=== PATIENT | female | born 1960 | race African-American/Black ===

== ENCOUNTER 2021-12-05 17:22 | Inpatient (IN) ==
[2021-12-05 18:06] LABS: Basophils % 0.1 % (0.0-0.8); Hematocrit 34.7 VOL% (35.7-47.0); Hemoglobin 11.6 GM/DL (12.0-16.0); Immature Granulocytes % 1.1 %; Immature Granulocytes Absolute 0.09 #; Lymphocytes # 0.4 10*3/uL (1.4-4.0); Mean Corpuscular HGB Conc 33.4 GM/DL (32-36); Mean Corpuscular Volume 94.3 FL (87-102); Mean Platelet Volume 8.6 FL (9.6-12.0); Monocytes % 1.5 % (1.7-12.7); Neutrophils % 92.3 % (38.7-73.9); Platelet Count 507 T/CUMM (130-400); Red Blood Count 3.68 MC/CUMM (3.8-5.5); White Blood Count 8.1 T/CUMM (4-12)
[2021-12-05] MEDS ORDERED: LEVOFLOXACIN INJ 750 MG/150 ML PREMIX IV STA (18:17)
[2021-12-05] MEDS ORDERED: methylPREDNISolone SOD SUC 125 MG/2 ML VIAL IV STA (18:17)
[2021-12-05] MEDS ORDERED: ONDANSETRON 4 MG/2 ML VIAL IV STA (18:17)
[2021-12-05] MEDS ORDERED: ALBUTEROL/IPRATROPIUM 3 ML NEB RESP TX STA (18:17)
[2021-12-05 18:34] LABS: PT Patient Result 11.5 SECS (10.5-12.0)
[2021-12-05 18:37] LABS: Albumin 3.1 G/DL (3.4-5.0); Bilirubin,Total 0.4 MG/DL (0.20-1.00); Calcium 9.5 MG/DL (8.5-10.1); Osmolality,Calculated 240.3 MOS/KG (273-304); Potassium 4.9 MMOL/L (3.5-5.1)
[2021-12-05 18:45] LABS: Lymphocytes 7 % (20-55); Segmented Neutrophils 93 % (50-85); Total Cells Counted 100
[2021-12-05 18:46] LABS: Platelet Estimate Increased
[2021-12-06] MEDS ORDERED: diphenhydrAMINE CAP 25 MG CAPSULE PO PRN (01:04)
[2021-12-06] MEDS ORDERED: DEXTROSE 10% 250 ML BAG IV PRN (01:04)
[2021-12-06] MEDS ORDERED: MORPHINE 2 MG/1 ML SYRINGE IV PRN (01:04)
[2021-12-06] MEDS ORDERED: GLUCAGON 1 MG VIAL IM PRN (01:04)
[2021-12-06] MEDS ORDERED: hydrALAZINE 20 MG/1 ML VIAL IV PRN (01:04)
[2021-12-06] MEDS ORDERED: NICOTINE 21 MG/24 HR PATCH TRANSDERM PRN (01:04)
[2021-12-06] MEDS: SODIUM CHLORIDE 0.9% 1,000 ML IV SCH ×3 (01:54→18:00)
[2021-12-06 04:57] LABS: Basophils % 0.2 % (0.0-0.8); Hematocrit 31.3 VOL% (35.7-47.0); Hemoglobin 10.5 GM/DL (12.0-16.0); Immature Granulocytes % 0.8 %; Immature Granulocytes Absolute 0.05 #; Lymphocytes # 0.4 10*3/uL (1.4-4.0); Lymphocytes % 6.6 % (21.3-54.2); Mean Corpuscular HGB Conc 33.5 GM/DL (32-36); Mean Corpuscular Volume 94.6 FL (87-102); Mean Platelet Volume 8.7 FL (9.6-12.0); Monocytes % 2.2 % (1.7-12.7); Neutrophils % 90.2 % (38.7-73.9); Platelet Count 519 T/CUMM (130-400); Red Blood Count 3.31 MC/CUMM (3.8-5.5); Red Cell Distribution Width 14.8 % (9.3-17.3); White Blood Count 6.4 T/CUMM (4-12)
[2021-12-06 05:15] LABS: Calcium 9.2 MG/DL (8.5-10.1); Osmolality,Calculated 241.2 MOS/KG (273-304); Potassium 4.8 MMOL/L (3.5-5.1)
[2021-12-06] MEDS: ALBUTEROL/IPRATROPIUM 3 ML NEB RESP TX SCH ×2 (07:20→19:32)
[2021-12-06] MEDS: HEPARIN 5,000 UNIT/1 ML VIAL SUBCUT SCH ×2 (09:45→21:27)
[2021-12-06] MEDS: methylPREDNISolone SOD SUC 40 MG/1 ML VIAL IV SCH ×2 (09:46→21:27)
[2021-12-06 11:10] LABS: % Iron Saturation 20.5 % (18-50)
[2021-12-06 11:23] LABS: Folate 5.87 NG/ML (5.38-24.0)
[2021-12-06 15:44] LABS: Calcium 8.9 MG/DL (8.5-10.1); Osmolality,Calculated 247.9 MOS/KG (273-304); Potassium 4.6 MMOL/L (3.5-5.1)
[2021-12-06] MEDS: ONDANSETRON 4 MG/2 ML VIAL IV PRN (16:55)
[2021-12-06] MEDS: LEVOFLOXACIN INJ 750 MG/150 ML PREMIX IV SCH (18:54)
[2021-12-06] MEDS: ZALEPLON 5 MG CAPSULE PO PRN (21:25)
[2021-12-06] MEDS: PARoxetine 20 MG TABLET PO SCH (21:25)
[2021-12-06] MEDS: metFORMIN 500 MG TABLET PO SCH (21:25)
[2021-12-06] MEDS: ATORVASTATIN 40 MG TABLET PO SCH (21:26)
[2021-12-06] MEDS: prednisoLONE ACETATE 1% OPH SUSP 5 ML BOTTLE RIGHT EYE SCH (21:26)
[2021-12-06] MEDS: FLUTICASONE/SALMETEROL 500-50 DISKUS 14 DOSE INH SCH (21:33)
[2021-12-06] MEDS: levETIRAcetam 250 MG TABLET PO SCH (21:36)
[2021-12-06] MEDS ORDERED: LORazepam 2 MG/1 ML VIAL ONE (23:58)
[2021-12-07] MEDS ORDERED: LORazepam 2 MG/1 ML VIAL IV ONE (00:01)
[2021-12-07] MEDS: ALBUTEROL/IPRATROPIUM 3 ML NEB RESP TX SCH ×5 (00:30→19:26)
[2021-12-07] MEDS: SODIUM CHLORIDE 0.9% 1,000 ML IV SCH ×3 (00:34→22:17)
[2021-12-07 06:14] LABS: Calcium 8.6 MG/DL (8.5-10.1); Osmolality,Calculated 248.5 MOS/KG (273-304); Potassium 3.9 MMOL/L (3.5-5.1)
[2021-12-07 07:01] LABS: Calcium 8.4 MG/DL (8.5-10.1); Osmolality,Calculated 246.6 MOS/KG (273-304); Potassium 3.9 MMOL/L (3.5-5.1); Risk Ratio 2.94; VLDL Cholesterol 15.4 MG/DL
[2021-12-07] MEDS: metFORMIN 500 MG TABLET PO SCH ×2 (09:17→22:08)
[2021-12-07] MEDS: HEPARIN 5,000 UNIT/1 ML VIAL SUBCUT SCH ×2 (09:17→22:08)
[2021-12-07] MEDS: levETIRAcetam 250 MG TABLET PO SCH (09:17)
[2021-12-07] MEDS: methylPREDNISolone SOD SUC 40 MG/1 ML VIAL IV SCH ×2 (09:21→22:08)
[2021-12-07] MEDS: FLUTICASONE/SALMETEROL 500-50 DISKUS 14 DOSE INH SCH ×2 (09:21→22:08)
[2021-12-07] MEDS: ONDANSETRON 4 MG/2 ML VIAL IV PRN ×2 (11:17→22:06)
[2021-12-07] MEDS ORDERED: LORazepam 2 MG/1 ML VIAL IV PRN (16:14)
[2021-12-07] MEDS: LEVOFLOXACIN INJ 750 MG/150 ML PREMIX IV SCH (18:36)
[2021-12-07] MEDS: prednisoLONE ACETATE 1% OPH SUSP 5 ML BOTTLE RIGHT EYE SCH (22:07)
[2021-12-07] MEDS: ATORVASTATIN 40 MG TABLET PO SCH (22:07)
[2021-12-07] MEDS: levETIRAcetam 500 MG TABLET PO SCH (22:08)
[2021-12-07] MEDS: PARoxetine 20 MG TABLET PO SCH (22:08)
[2021-12-07] MEDS: guaiFENesin/DM ER 600-30 MG TABLET PO PRN (23:02)
[2021-12-08 05:33] LABS: Basophils % 0.1 % (0.0-0.8); Hematocrit 29.9 VOL% (35.7-47.0); Hemoglobin 9.6 GM/DL (12.0-16.0); Immature Granulocytes % 1.3 %; Immature Granulocytes Absolute 0.14 #; Lymphocytes # 0.2 10*3/uL (1.4-4.0); Mean Corpuscular HGB Conc 32.1 GM/DL (32-36); Mean Corpuscular Volume 98.4 FL (87-102); Mean Platelet Volume 8.8 FL (9.6-12.0); Monocytes % 3.8 % (1.7-12.7); Neutrophils % 92.8 % (38.7-73.9); Platelet Count 453 T/CUMM (130-400); Red Blood Count 3.04 MC/CUMM (3.8-5.5); Red Cell Distribution Width 14.6 % (9.3-17.3); White Blood Count 10.9 T/CUMM (4-12)
[2021-12-08 05:51] LABS: Calcium 8.2 MG/DL (8.5-10.1); Osmolality,Calculated 250.5 MOS/KG (273-304); Potassium 4.3 MMOL/L (3.5-5.1)
[2021-12-08 05:59] LABS: Hypochromia 1+; Lymphocytes 3 % (20-55); Microcytosis 1+; Platelet Estimate Adequate; Segmented Neutrophils 96 % (50-85); Total Cells Counted 100
[2021-12-08] MEDS: SODIUM CHLORIDE 0.9% 1,000 ML IV SCH ×3 (06:15→22:59)
[2021-12-08] MEDS: ALBUTEROL/IPRATROPIUM 3 ML NEB RESP TX SCH ×4 (07:32→19:21)
[2021-12-08] MEDS: FLUTICASONE/SALMETEROL 500-50 DISKUS 14 DOSE INH SCH ×2 (09:22→20:51)
[2021-12-08] MEDS: guaiFENesin/DM ER 600-30 MG TABLET PO PRN ×2 (09:23→20:52)
[2021-12-08] MEDS: HEPARIN 5,000 UNIT/1 ML VIAL SUBCUT SCH ×2 (09:23→20:53)
[2021-12-08] MEDS: levETIRAcetam 500 MG TABLET PO SCH ×2 (09:23→20:52)
[2021-12-08] MEDS: metFORMIN 500 MG TABLET PO SCH ×2 (09:23→20:53)
[2021-12-08] MEDS: methylPREDNISolone SOD SUC 40 MG/1 ML VIAL IV SCH ×2 (09:25→20:52)
[2021-12-08 14:46] LABS: % Iron Saturation 13.6 % (18-50)
[2021-12-08 14:52] LABS: Folate 3.62 NG/ML (5.38-24.0)
[2021-12-08] MEDS: LEVOFLOXACIN INJ 750 MG/150 ML PREMIX IV SCH (18:47)
[2021-12-08] MEDS: prednisoLONE ACETATE 1% OPH SUSP 5 ML BOTTLE RIGHT EYE SCH (20:51)
[2021-12-08] MEDS: PARoxetine 20 MG TABLET PO SCH (20:52)
[2021-12-08] MEDS: ATORVASTATIN 40 MG TABLET PO SCH (20:53)
[2021-12-09] MEDS: ALBUTEROL/IPRATROPIUM 3 ML NEB RESP TX SCH ×4 (00:03→19:30)
[2021-12-09 05:05] LABS: Basophils % 0.1 % (0.0-0.8); Hematocrit 31.5 VOL% (35.7-47.0); Hemoglobin 9.7 GM/DL (12.0-16.0); Immature Granulocytes % 1.3 %; Immature Granulocytes Absolute 0.13 #; Lymphocytes # 0.3 10*3/uL (1.4-4.0); Lymphocytes % 3.3 % (21.3-54.2); Mean Corpuscular HGB Conc 30.8 GM/DL (32-36); Mean Corpuscular Volume 98.7 FL (87-102); Mean Platelet Volume 8.5 FL (9.6-12.0); Monocytes % 5.3 % (1.7-12.7); Platelet Count 413 T/CUMM (130-400); Red Blood Count 3.19 MC/CUMM (3.8-5.5); Red Cell Distribution Width 14.5 % (9.3-17.3); White Blood Count 10.3 T/CUMM (4-12)
[2021-12-09 05:20] LABS: Calcium 8.6 MG/DL (8.5-10.1); Osmolality,Calculated 259.9 MOS/KG (273-304); Potassium 4.2 MMOL/L (3.5-5.1)
[2021-12-09 05:29] LABS: Hypochromia 1+; Lymphocytes 1 % (20-55); Microcytosis 1+; Platelet Estimate Adequate; Segmented Neutrophils 96 % (50-85); Total Cells Counted 100
[2021-12-09] MEDS: SODIUM CHLORIDE 0.9% 1,000 ML IV SCH ×3 (06:42→22:09)
[2021-12-09] MEDS: levETIRAcetam 500 MG TABLET PO SCH (08:29)
[2021-12-09] MEDS: metFORMIN 500 MG TABLET PO SCH ×2 (08:29→21:17)
[2021-12-09] MEDS: methylPREDNISolone SOD SUC 40 MG/1 ML VIAL IV SCH ×2 (08:29→21:20)
[2021-12-09] MEDS: HEPARIN 5,000 UNIT/1 ML VIAL SUBCUT SCH ×2 (08:30→21:18)
[2021-12-09] MEDS: FLUTICASONE/SALMETEROL 500-50 DISKUS 14 DOSE INH SCH ×2 (08:30→22:09)
[2021-12-09] MEDS ORDERED: GRANISETRON 1 MG/1 ML VIAL IV SCH (10:00)
[2021-12-09] MEDS ORDERED: CARBOplatin 550 MG in SODIUM CHLORIDE 0.9% 250 ML IV ONE (10:30)
[2021-12-09] MEDS: ETOPOSIDE 150 MG in SODIUM CHLORIDE 0.9% 500 ML IV SCH (12:39)
[2021-12-09] MEDS: LEVOFLOXACIN INJ 750 MG/150 ML PREMIX IV SCH (17:43)
[2021-12-09] MEDS: PARoxetine 20 MG TABLET PO SCH (21:17)
[2021-12-09] MEDS: ATORVASTATIN 40 MG TABLET PO SCH (21:17)
[2021-12-09] MEDS: prednisoLONE ACETATE 1% OPH SUSP 5 ML BOTTLE RIGHT EYE SCH (22:09)
[2021-12-09] MEDS: levETIRAcetam LIQUID 100 MG/ML 30 ML/BOTTLE PO SCH (22:10)
[2021-12-10] MEDS: ALBUTEROL/IPRATROPIUM 3 ML NEB RESP TX SCH ×4 (00:45→19:35)
[2021-12-10] MEDS: SODIUM CHLORIDE 0.9% 1,000 ML IV SCH ×3 (04:35→16:37)
[2021-12-10 04:50] LABS: Basophils % 0.1 % (0.0-0.8); Hematocrit 31.1 VOL% (35.7-47.0); Hemoglobin 10.1 GM/DL (12.0-16.0); Immature Granulocytes % 0.7 %; Immature Granulocytes Absolute 0.08 #; Lymphocytes # 0.4 10*3/uL (1.4-4.0); Lymphocytes % 2.9 % (21.3-54.2); Mean Corpuscular HGB Conc 32.5 GM/DL (32-36); Mean Corpuscular Volume 98.1 FL (87-102); Mean Platelet Volume 8.6 FL (9.6-12.0); Monocytes % 4.4 % (1.7-12.7); Neutrophils % 91.9 % (38.7-73.9); Platelet Count 446 T/CUMM (130-400); Red Blood Count 3.17 MC/CUMM (3.8-5.5); Red Cell Distribution Width 14.8 % (9.3-17.3)
[2021-12-10 05:12] LABS: Calcium 8.6 MG/DL (8.5-10.1); Osmolality,Calculated 257.9 MOS/KG (273-304); Potassium 3.9 MMOL/L (3.5-5.1)
[2021-12-10 05:41] LABS: Hypochromia 1+; Lymphocytes 3 % (20-55); Microcytosis 1+; Platelet Estimate Adequate; Segmented Neutrophils 95 % (50-85); Total Cells Counted 100
[2021-12-10] MEDS: metFORMIN 500 MG TABLET PO SCH ×2 (09:09→21:00)
[2021-12-10] MEDS: methylPREDNISolone SOD SUC 40 MG/1 ML VIAL IV SCH ×2 (09:09→21:35)
[2021-12-10] MEDS: HEPARIN 5,000 UNIT/1 ML VIAL SUBCUT SCH ×2 (09:09→21:16)
[2021-12-10] MEDS: FLUTICASONE/SALMETEROL 500-50 DISKUS 14 DOSE INH SCH ×2 (09:10→21:21)
[2021-12-10] MEDS: levETIRAcetam LIQUID 100 MG/ML 30 ML/BOTTLE PO SCH ×2 (09:10→21:04)
[2021-12-10] MEDS: ETOPOSIDE 150 MG in SODIUM CHLORIDE 0.9% 500 ML IV SCH (12:51)
[2021-12-10] MEDS: ACETAMINOPHEN 325 MG TABLET PO PRN (14:26)
[2021-12-10] MEDS: ONDANSETRON 4 MG/2 ML VIAL IV PRN ×2 (15:22→21:37)
[2021-12-10] MEDS: NYSTATIN 500,000 UNIT/5 ML UDCUP SWISH/SWAL SCH ×2 (16:36→21:16)
[2021-12-10] MEDS: LEVOFLOXACIN INJ 750 MG/150 ML PREMIX IV SCH (18:12)
[2021-12-10] MEDS: ATORVASTATIN 40 MG TABLET PO SCH (21:00)
[2021-12-10] MEDS: PARoxetine 20 MG TABLET PO SCH (21:00)
[2021-12-10] MEDS: prednisoLONE ACETATE 1% OPH SUSP 5 ML BOTTLE RIGHT EYE SCH (21:21)
[2021-12-11] MEDS: ALBUTEROL/IPRATROPIUM 3 ML NEB RESP TX SCH ×4 (00:38→19:07)
[2021-12-11] MEDS: SODIUM CHLORIDE 0.9% 1,000 ML IV SCH ×3 (04:21→22:13)
[2021-12-11 04:33] LABS: Basophils % 0.1 % (0.0-0.8); Hematocrit 32.9 VOL% (35.7-47.0); Hemoglobin 10.6 GM/DL (12.0-16.0); Immature Granulocytes % 0.7 %; Immature Granulocytes Absolute 0.07 #; Lymphocytes # 0.2 10*3/uL (1.4-4.0); Lymphocytes % 2.3 % (21.3-54.2); Mean Corpuscular HGB Conc 32.2 GM/DL (32-36); Mean Corpuscular Volume 97.6 FL (87-102); Mean Platelet Volume 8.7 FL (9.6-12.0); Neutrophils % 93.9 % (38.7-73.9); Platelet Count 384 T/CUMM (130-400); Red Blood Count 3.37 MC/CUMM (3.8-5.5); Red Cell Distribution Width 15.5 % (9.3-17.3); White Blood Count 10.6 T/CUMM (4-12)
[2021-12-11 04:42] LABS: Hypochromia 1+; Lymphocytes 1 % (20-55); Microcytosis 1+; Segmented Neutrophils 98 % (50-85); Total Cells Counted 100
[2021-12-11 04:55] LABS: Calcium 8.7 MG/DL (8.5-10.1); Osmolality,Calculated 262.8 MOS/KG (273-304); Potassium 3.8 MMOL/L (3.5-5.1)
[2021-12-11] MEDS: FLUTICASONE/SALMETEROL 500-50 DISKUS 14 DOSE INH SCH ×2 (08:36→20:46)
[2021-12-11] MEDS: methylPREDNISolone SOD SUC 40 MG/1 ML VIAL IV SCH ×2 (08:37→20:48)
[2021-12-11] MEDS: NYSTATIN 500,000 UNIT/5 ML UDCUP SWISH/SWAL SCH ×4 (08:37→20:48)
[2021-12-11] MEDS: levETIRAcetam LIQUID 100 MG/ML 30 ML/BOTTLE PO SCH ×2 (08:37→20:42)
[2021-12-11] MEDS: metFORMIN 500 MG TABLET PO SCH ×2 (08:37→20:46)
[2021-12-11] MEDS: HEPARIN 5,000 UNIT/1 ML VIAL SUBCUT SCH ×2 (08:38→20:49)
[2021-12-11] MEDS: ACETAMINOPHEN 325 MG TABLET PO PRN (12:39)
[2021-12-11] MEDS ORDERED: DOCUSATE SODIUM 100 MG CAPSULE PO PRN (13:39)
[2021-12-11] MEDS: LEVOFLOXACIN INJ 750 MG/150 ML PREMIX IV SCH (18:02)
[2021-12-11] MEDS: ATORVASTATIN 40 MG TABLET PO SCH (20:46)
[2021-12-11] MEDS: PARoxetine 20 MG TABLET PO SCH (20:47)
[2021-12-11] MEDS: ONDANSETRON 4 MG/2 ML VIAL IV PRN (21:04)
[2021-12-11] MEDS: prednisoLONE ACETATE 1% OPH SUSP 5 ML BOTTLE RIGHT EYE SCH (22:31)
[2021-12-12] MEDS: ALBUTEROL/IPRATROPIUM 3 ML NEB RESP TX SCH ×3 (00:18→16:40)
[2021-12-12] MEDS: ZALEPLON 5 MG CAPSULE PO PRN (03:08)
[2021-12-12] MEDS: SODIUM CHLORIDE 0.9% 1,000 ML IV SCH ×2 (05:52→10:34)
[2021-12-12 06:19] LABS: Basophils % 0.1 % (0.0-0.8); Hematocrit 30.3 VOL% (35.7-47.0); Hemoglobin 9.8 GM/DL (12.0-16.0); Immature Granulocytes % 0.5 %; Immature Granulocytes Absolute 0.04 #; Lymphocytes # 0.3 10*3/uL (1.4-4.0); Lymphocytes % 4.1 % (21.3-54.2); Mean Corpuscular HGB Conc 32.3 GM/DL (32-36); Mean Corpuscular Volume 95.9 FL (87-102); Mean Platelet Volume 8.8 FL (9.6-12.0); Monocytes % 2.6 % (1.7-12.7); Neutrophils % 92.7 % (38.7-73.9); Platelet Count 415 T/CUMM (130-400); Red Blood Count 3.16 MC/CUMM (3.8-5.5); Red Cell Distribution Width 15.4 % (9.3-17.3); White Blood Count 7.3 T/CUMM (4-12)
[2021-12-12 06:43] LABS: Albumin 2.6 G/DL (3.4-5.0); Bilirubin,Total 1.2 MG/DL (0.20-1.00); Calcium 8.5 MG/DL (8.5-10.1); Osmolality,Calculated 262.7 MOS/KG (273-304); Total Protein 6.4 G/DL (6.4-8.2)
[2021-12-12 06:53] LABS: Band Neutrophils 1 % (0-10); Hypochromia 1+; Lymphocytes 5 % (20-55); Segmented Neutrophils 91 % (50-85); Total Cells Counted 100
[2021-12-12 06:54] LABS: Anisocytosis 1+; Microcytosis 1+; Platelet Estimate Increased
[2021-12-12] MEDS: NYSTATIN 500,000 UNIT/5 ML UDCUP SWISH/SWAL SCH ×2 (09:42→12:39)
[2021-12-12] MEDS: metFORMIN 500 MG TABLET PO SCH (09:42)
[2021-12-12] MEDS: methylPREDNISolone SOD SUC 40 MG/1 ML VIAL IV SCH (09:43)
[2021-12-12] MEDS: FLUTICASONE/SALMETEROL 500-50 DISKUS 14 DOSE INH SCH (09:44)
[2021-12-12] MEDS: HEPARIN 5,000 UNIT/1 ML VIAL SUBCUT SCH (09:51)
[2021-12-12] MEDS: levETIRAcetam LIQUID 100 MG/ML 30 ML/BOTTLE PO SCH (11:11)
[2021-12-12 11:51] VITALS: BP 146/70
[2021-12-12] MEDS: ONDANSETRON 4 MG/2 ML VIAL IV PRN (12:39)
== END 2021-12-12 15:22 | disposition home health service (06) | DRG 140 ==
LOC: N.ED 17:22 → SUATTDRO 19:41 → N.TELEN 19:41
PROVIDERS: ADMIT Internal Medicine; ATTEND Internal Medicine